=== PATIENT | male | born 1990 | race Two or more races ===

== ENCOUNTER 2017-04-03 10:38 | Emergency (ER) | payer SELFPAY ==
[2017-04-03 10:49] VITALS: BP 155/95
[2017-04-03] MEDS ORDERED: ALPR0.5T PO (11:34)
--- NOTE | 2017-04-03 11:34 | PHYS DOC ---
Past Medical History Past Medical History: Anxiety Past Surgical History: No Surgical History Alcohol Use: Occasionally Drug Use: Marijuana Adult General Chief Complaint Chief Complaint: OTHER COMPLAINTS [facility] HPI Patient is a 26 year old male with history of anxiety who presents today complaining of numbness to bilateral hands and the right leg that began 5 hours ago. Patient denies any injury. He is alert and oriented 3. He states he has not had to take antianxiety medicines for years. He states he has been playing video games with his two friends who are in the ED for 3 days barely stopping to take a break and sleep. Patient and his friends state they barely have eaten in the last 3 days because of the video games. Patient states on occasion he uses ecstasy and marijuana. Patient denies any chest pain or shortness of breath. Denies any headache. Review of Systems Review of Systems Constitutional: Denies fever or chills [] Eyes: Denies change in visual acuity, redness, or eye pain [] HENT: Denies nasal congestion or sore throat [] Respiratory: Denies cough or shortness of breath [] Cardiovascular: No additional information not addressed in HPI [] GI: Denies abdominal pain, nausea, vomiting, bloody stools or diarrhea [] : Denies dysuria or hematuria [] Musculoskeletal: Denies back pain or joint pain [] Integument: Denies rash or skin lesions [] Neurologic: Numbness to bilateral hands and right leg Endocrine: Denies polyuria or polydipsia [] Physical Exam Physical Exam Constitutional: Well developed, well nourished, no acute distress, non-toxic appearance. [] HENT: Normocephalic, atraumatic, bilateral external ears normal, oropharynx moist, no oral exudates, nose normal. [] Eyes: PERRLA, EOMI, conjunctiva normal, no discharge. [] Neck: Normal range of motion, no tenderness, supple, no stridor. [] Cardiovascular:Heart rate regular rhythm, no murmur [] Lungs & Thorax: Bilateral breath sounds clear to auscultation [] Abdomen: Bowel sounds normal, soft, no tenderness, no masses, no pulsatile masses. [] Skin: Warm, dry, no erythema, no rash. [] Back: No tenderness, no CVA tenderness. [] Extremities: No tenderness, no cyanosis, no clubbing, ROM intact, no edema. [] Neurologic: Alert and oriented X 3, normal motor function, normal sensory function, no focal deficits noted. Cranial nerves II through XII intact Psychologic: Affect normal, judgement normal, mood normal. [] Current Patient Data Vital Signs Vital Signs Date Time Temp Pulse Resp B/P (MAP) Pulse Ox O2 Delivery O2 Flow Rate FiO2 04/03/17 10:49 98.8 86 18 99 Room Air 98.8 EKG EKG [] Radiology/Procedures Radiology/Procedures [] Course & Med Decision Making Course & Med Decision Making Pertinent Labs and Imaging studies reviewed. (See chart for details) This is a 26-year-old male patient who presents with numbness and tingling to the hand and right leg that began 5 hours ago. Patient has history of anxiety and is not on any medication. Patient is neurologically intact. We talked about stroke workup because he was worried he is having stroke symptoms. He decided he wants to go home with anxiety medicine and see if that will help. He was discharged with Xanax. Provided him a primary care doctor's list as well as instructions to follow-up with [facility] for anxiety. Dragon Disclaimer Dragon Disclaimer This electronic medical record was generated, in whole or in part, using a voice recognition dictation system. Departure Departure Impression: Primary Impression: Paresthesias Additional Impression: Anxiety Disposition: 01 HOME, SELF-CARE Condition: STABLE Patient Instructions: Anxiety and Panic Attacks, [id number], Paresthesia, Hbmm-fm-[id number] Additional Instructions: You were seen with paresthesia is. This conditions can cause numbness and tingling. You also appeared to have some underlying anxiety. One thing we put you on is Xanax for anxiety. Do not do street drugs with this medication. Do not take any narcotics with this medication. Do not drive with these medications. We also put you on gabapentin which helps with numbness and tingling. We recommend you go home and push fluids. Try and hydrate yourself and issue. Healthy. Please take some time to rest. We provided do instructions to follow-up with a primary care doctor from the list provided or [facility] for anxiety as soon as you can. Their phone number is [phone]. Scripts Alprazolam (XANAX) 0.5 Mg Tablet 1 TAB PO TID Y for ANXIETY / AGITATION, #15 TAB Prov: KIRILL KOHLER APRN 04/03/17 Problem Qualifiers KIRILL KOHLER APRN Apr 03, 2017 11:34
[2017-04-03] MEDS ORDERED: ALPRAZolam 0.5 MG TABLET PO ONE (11:45)
== END 2017-04-03 11:49 | disposition home or self-care (01) ==
LOC: ER 10:38
DX: R20.9 Unspecified disturbances of skin sensation (principal); R20.2 Paresthesia of skin; F41.9 Anxiety disorder, unspecified; R20.0 Anesthesia of skin; F12.10 Cannabis abuse, uncomplicated
CPT/HCPCS: 99283

== ENCOUNTER 2018-08-17 19:12 | Emergency (ER) | payer OTHER ==
[~2018-08-17] VITALS: Ht 185.4 cm; Wt 136.1 kg
[~2018-08-17 19:12] MED LIST: ALPR0.5T PO
[2018-08-17 19:26] VITALS: BP 161/100
--- NOTE | 2018-08-17 20:53 | PHYS DOC ---
Past Medical History Past Medical History: No Pertinent History Past Surgical History: No Surgical History Alcohol Use: Occasionally Drug Use: Marijuana Adult General Chief Complaint Chief Complaint: CHEST PAIN HPI HPI Patient is a 26 year old male who presents with chest pain. Patient eloped from the department prior to being seen by physician. Review of Systems Review of Systems All other systems were reviewed and found to be within normal limits, except as documented in this note. Allergies Allergies Allergies Coded Allergies Type Severity Reaction Last Updated Verified No Known Drug Allergies 04/03/17 No Physical Exam Physical Exam No Exam completed. Current Patient Data Vital Signs Vital Signs Date Time Temp Pulse Resp B/P (MAP) Pulse Ox O2 Delivery O2 Flow Rate FiO2 08/17/18 19:26 98.6 118 16 161/100 (120) 99 Room Air 98.6 EKG EKG [] Radiology/Procedures Radiology/Procedures [] Course & Med Decision Making Course & Med Decision Making Pertinent Labs and Imaging studies reviewed. (See chart for details) Patient was not evaluated by physician. According to nursing staff, he presented to the ER with some chest pain after smoking marijuana. While waiting for evaluation and exam by physician, patient left the department. He was last known to have a normal steady gait to be alert and oriented. He was accompanied by a friend. Dragon Disclaimer Dragon Disclaimer This electronic medical record was generated, in whole or in part, using a voice recognition dictation system. Departure Departure Disposition: 01 HOME, SELF-CARE Condition: GOOD Referrals: NO PCP (PCP) YUE LANCE DO Aug 17, 2018 20:53
--- NOTE | 2018-08-18 07:09 | EKG ---
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
== END 2018-08-17 20:24 | disposition left against medical advice (07) ==
LOC: EDBD 19:12 → ER 19:12
DX: R07.9 Chest pain, unspecified (principal); F12.10 Cannabis abuse, uncomplicated; Z53.21 Procedure and treatment not carried out due to patient leaving prior to being seen by health care provider
CPT/HCPCS: 93005; 99281